=== PATIENT | female | born 1975 | race Two or more races ===

== ENCOUNTER 2023-06-16 17:48 | Inpatient (IN) | payer MEDICAID, OTHER ==
[~2023-06-16] VITALS: Ht 160 cm; Wt 71.4 kg
[2023-06-16 18:38] LABS: Basophils # (auto) 0.1 10 ^3/uL (0-0.2); Basophils % (auto) 0.6 % (0.0-2.0); Eosinophils # (auto) 0.2 10 ^3/uL (0-0.8); Eosinophils % (auto) 1.2 % (0.0-7.0); Hemoglobin 16.3 g/dL (12.2-16.2); Lymphocytes # (auto) 2.7 10 ^3/uL (0.4-5.4); Lymphocytes % (auto) 13.6 % (10.0-50.0); Mean Corpuscular Hemoglobin 30.1 pg (28.0-32.0); Mean Corpuscular Hgb Conc. 33.3 g/dL (32.0-36.0); Mean Corpuscular Volume 90.1 fL (80.0-100.0); Monocytes # (auto) 0.7 10 ^3/uL (0-1.3); Monocytes % (auto) 3.7 % (0.0-12.0); Neutrophils # (auto) 15.9 10 ^3/uL (1.6-8.6); Neutrophils % (auto) 80.9 % (37.0-80.0); Red Blood Cells 5.44 10^6/uL (4.0-5.20); Red Cell Distribution Width 14.2 % (11.8-14.3); White Blood Cell 19.7 10^3/uL (4.4-10.8)
[2023-06-16 18:50] LABS: Alanine Aminotransferase 19 U/L (7-40); Alkaline Phosphatase 100 U/L (46-116); Aspartate Aminotransferase 10 U/L (13-40); Calcium 9.9 mg/dL (8.7-10.4); Carbon Dioxide 22 mmol/L (20-30); Chloride 107 mmol/L (98-107); Glucose 100 mg/dL (74-106); Potassium 4.4 mmol/L (3.5-5.1)
[2023-06-16 18:51] LABS: Anion Gap 13 (5-15); BUN/Creatinine Ratio 12.8 (10.0-20.0); Bilirubin, Total 0.4 mg/dL (0.2-1.0); Blood Urea Nitrogen 11 mg/dL (9-23); Lipase 30 U/L (12-53); Sodium 142 mmol/L (136-145)
[2023-06-16] MEDS ORDERED: PIPERACILLIN-TAZOB 3.375GM 100 ML IV ONE (22:15)
[2023-06-16] MEDS ORDERED: metroNIDAZOLE 500MG/100ML 100 ML IV ONE (22:15)
[2023-06-16] MEDS ORDERED: LACTATED RINGER'S 1,900 ML IV ONE (22:15)
[2023-06-16 22:55] LABS: Urine WBC None Seen /hpf (0 - 5)
[2023-06-16 23:45] LABS: Urine Amorphous Crystal MANY /hpf (None Seen); Urine Bacteria NONE SEEN /hpf (None Seen); Urine Blood TRACE /uL (Negative); Urine Clarity CLOUDY (Clear); Urine Color Yellow (Yellow); Urine Mucus FEW (None Seen); Urine Protein, UAD TRACE (Negative); Urine Specific Gravity 1.031 (1.001-1.035); Urine Urobilinogen Normal (Negative)
[2023-06-17] MEDS ORDERED: fentaNYL CITRATE 100 MCG/2 ML VL IV ONE (00:30)
[2023-06-17] MEDS ORDERED: ONDANSETRON HCL 4 MG/2 ML VIAL IV ONE (00:30)
[2023-06-17] MEDS ORDERED: D5W/SOD CHL 0.45% 1,000 ML IV SCH (01:15)
[2023-06-17] MEDS ORDERED: ACETAMINOPHEN 325 MG TAB PO PRN (01:15)
[2023-06-17] MEDS ORDERED: DOCUSATE SOD 100 MG CAP PO PRN (01:15)
[2023-06-17] MEDS ORDERED: MORPHINE SULFATE INJ 2 MG/ml SYRG IV PRN ×2 (01:15→02:30)
[2023-06-17] MEDS ORDERED: ONDANSETRON HCL 4 MG/2 ML VIAL IV PRN (01:15)
[2023-06-17] MEDS ORDERED: HYDROcodone-ACET 5/325MG TAB PO PRN (01:15)
[2023-06-17] MEDS ORDERED: IOHEXOL 350 MG/ML 100ML IJ ONE (02:00)
[2023-06-17] MEDS ORDERED: SODIUM CHLORIDE 0.9% 1,900 ML IV ONE (02:15)
[2023-06-17] MEDS ORDERED: NITROGLYCERIN 0.4 MG SL TAB SL PRN (02:30)
[2023-06-17] MEDS: cefTRIAXone 1GM/50ML D5W 50 ML IV SCH ×2 (02:53→22:42)
[2023-06-17 06:30] LABS: Basophils # (auto) 0.2 10 ^3/uL (0-0.2); Basophils % (auto) 1.6 % (0.0-2.0); Eosinophils # (auto) 0.6 10 ^3/uL (0-0.8); Hematocrit 42.6 % (36.0-46.0); Hemoglobin 14.2 g/dL (12.2-16.2); Lymphocytes # (auto) 3.9 10 ^3/uL (0.4-5.4); Lymphocytes % (auto) 28.2 % (10.0-50.0); Mean Corpuscular Hgb Conc. 33.2 g/dL (32.0-36.0); Mean Corpuscular Volume 90.4 fL (80.0-100.0); Monocytes # (auto) 1.1 10 ^3/uL (0-1.3); Monocytes % (auto) 7.9 % (0.0-12.0); Neutrophils # (auto) 8.1 10 ^3/uL (1.6-8.6); Neutrophils % (auto) 58.3 % (37.0-80.0); Nucleated Red Blood Cells % 0.1 %; Red Blood Cells 4.72 10^6/uL (4.0-5.20); Red Cell Distribution Width 13.9 % (11.8-14.3); White Blood Cell 13.9 10^3/uL (4.4-10.8)
[2023-06-17 06:42] LABS: Alanine Aminotransferase 13 U/L (7-40); Albumin 3.9 g/dL (3.2-4.8); Alkaline Phosphatase 84 U/L (46-116); Anion Gap 8 (5-15); Aspartate Aminotransferase 8 U/L (13-40); BUN/Creatinine Ratio 8.4 (10.0-20.0); Bilirubin, Total 0.5 mg/dL (0.2-1.0); Blood Urea Nitrogen 8 mg/dL (9-23); Calcium 7.6 mg/dL (8.7-10.4); Carbon Dioxide 24 mmol/L (20-30); Chloride 108 mmol/L (98-107); Glucose 85 mg/dL (74-106); Potassium 3.8 mmol/L (3.5-5.1); Sodium 140 mmol/L (136-145)
[2023-06-17 06:43] LABS: Total Protein 6.3 g/dL (5.7-8.2)
[2023-06-17] MEDS: metroNIDAZOLE 500MG/100ML 100 ML IV SCH ×4 (14:13→23:32)
[2023-06-17] MEDS: D5W/SOD CHL 0.45% 1,000 ML IV SCH ×2 (14:33→21:15)
[2023-06-17 15:00] VITALS: PULSE 69; RESP 16; O2SAT 95
[2023-06-17] MEDS ORDERED: GASTROGRAFIN 120 ML SOL ONE (15:33)
[2023-06-17] MEDS: FOLIC ACID 1 MG, MULTIPLE VITAMIN 10 ML, MAGNESIUM SULF SDV 50% 8 MEQ, THIAMINE INJ 100... INJ SCH ×5 (18:14)
[2023-06-17 19:50] VITALS: PULSE 68; RESP 16; O2SAT 98
[2023-06-18] VITALS (8 sets, daily range): BP systolic 119–145; BP diastolic 51–84; PULSE 60–78; RESP 17–20; TEMP 97.9–98.4; O2SAT 95–99
[2023-06-18] MEDS: D5W/SOD CHL 0.45% 1,000 ML IV SCH ×3 (05:00→23:02)
[2023-06-18] MEDS: metroNIDAZOLE 500MG/100ML 100 ML IV SCH ×2 (05:26→20:33)
[2023-06-18 06:00] LABS: Basophils # (auto) 0.1 10 ^3/uL (0-0.2); Eosinophils # (auto) 0.5 10 ^3/uL (0-0.8); Eosinophils % (auto) 4.6 % (0.0-7.0); Hemoglobin 13.3 g/dL (12.2-16.2); Lymphocytes % (auto) 38.1 % (10.0-50.0); Mean Corpuscular Hemoglobin 30.3 pg (28.0-32.0); Mean Corpuscular Hgb Conc. 33.3 g/dL (32.0-36.0); Mean Corpuscular Volume 91.2 fL (80.0-100.0); Monocytes # (auto) 0.6 10 ^3/uL (0-1.3); Monocytes % (auto) 5.8 % (0.0-12.0); Neutrophils # (auto) 5.3 10 ^3/uL (1.6-8.6); Neutrophils % (auto) 50.5 % (37.0-80.0); Nucleated Red Blood Cells % 0.3 %; Red Blood Cells 4.39 10^6/uL (4.0-5.20); Red Cell Distribution Width 13.9 % (11.8-14.3); White Blood Cell 10.4 10^3/uL (4.4-10.8)
[2023-06-18 06:36] LABS: Alanine Aminotransferase 11 U/L (7-40); Albumin 3.7 g/dL (3.2-4.8); Alkaline Phosphatase 73 U/L (46-116); Anion Gap 8 (5-15); Aspartate Aminotransferase 9 U/L (13-40); Blood Urea Nitrogen 8 mg/dL (9-23); Calcium 8.4 mg/dL (8.7-10.4); Carbon Dioxide 22 mmol/L (20-30); Chloride 111 mmol/L (98-107); Glucose 82 mg/dL (74-106); Potassium 3.6 mmol/L (3.5-5.1); Sodium 141 mmol/L (136-145)
[2023-06-18 06:37] LABS: Bilirubin, Total 0.4 mg/dL (0.2-1.0); Total Protein 6.1 g/dL (5.7-8.2)
[2023-06-18] MEDS: FOLIC ACID 1 MG, MULTIPLE VITAMIN 10 ML, MAGNESIUM SULF SDV 50% 8 MEQ, THIAMINE INJ 100... INJ SCH ×5 (12:19)
[2023-06-18] MEDS: cefTRIAXone 1GM/50ML D5W 50 ML IV SCH (22:40)
[2023-06-19] MEDS: metroNIDAZOLE 500MG/100ML 100 ML IV SCH ×2 (04:18→12:15)
[2023-06-19 05:00] VITALS: BP 135/84; PULSE 59; RESP 19; TEMP 98.3; O2SAT 99
[2023-06-19] MEDS: D5W/SOD CHL 0.45% 1,000 ML IV SCH ×2 (06:46→13:15)
[2023-06-19 08:00] VITALS: PULSE 53
[2023-06-19 09:00] VITALS: BP 140/83; PULSE 70; RESP 20; TEMP 97.7; O2SAT 93
[2023-06-19] MEDS: FOLIC ACID 1 MG, MULTIPLE VITAMIN 10 ML, MAGNESIUM SULF SDV 50% 8 MEQ, THIAMINE INJ 100... INJ SCH ×5 (12:00)
[2023-06-19] MEDS ORDERED: CIP500T PO (13:01)
[2023-06-19 13:04] VITALS: BP 148/79; PULSE 69; RESP 20; TEMP 98.1; O2SAT 98
[2023-06-19 15:36] VITALS: TEMP 36.7
== END 2023-06-19 16:28 | disposition home or self-care (01) | DRG 720 ==
LOC: EDBD 17:48 → ER 17:48 → TELE 06-17 02:29 → TELE-EAST 06-17 21:53
PROVIDERS: ADMIT Nurse Practitioner Family; ATTEND Nurse Practitioner Acute Care
DX: A41.9 Sepsis, unspecified organism (principal); K56.609 Unspecified intestinal obstruction, unspecified as to partial versus complete obstruction; N39.0 Urinary tract infection, site not specified; D72.829 Elevated white blood cell count, unspecified; K52.9 Noninfective gastroenteritis and colitis, unspecified; F10.20 Alcohol dependence, uncomplicated; Y90.9 Presence of alcohol in blood, level not specified; Z88.8 Allergy status to other drugs, medicaments and biological substances; Z91.040 Latex allergy status; Z79.899 Other long term (current) drug therapy; Z82.49 Family history of ischemic heart disease and other diseases of the circulatory system
CPT/HCPCS: 36415; 74177; 74250; 76705; 80053; 81001; 83605; 83690; 85025; 87040; 93005; G0378; J0696; J2405; J2543; J3490

== ENCOUNTER 2025-07-28 18:26 | Inpatient (IN) | payer MEDICAID ==
[~2025-07-28] VITALS: Ht 170.2 cm; Wt 74.4 kg
[~2025-07-28 18:26] MED LIST: CIP500T PO
--- NOTE | 2025-07-28 18:59 | ED.PDOC ---
GI ASSESSMENT HPI Comments 49-year-old female who comes in with chief complaint of epigastric pain and dizziness. The patient states that the symptoms started this morning. The patient states that the pain is a 10/10. There has been some nausea and vomiting but otherwise there are no other symptoms. The patient has has a history of this in the past two years ago but is not sure what it was. She denies any dysuria. The patient went to a local urgent care and after being seen the patient was sent to the emergency department's for evaluation. Chief Complaint: Abdominal Pain Time Seen by MD: 18:29 Primary Care Provider: CARIE Reviewed Notes: Nurses Notes, Medications, Allergies (No allergies to medications but allergic to latex) Allergies: Coded Allergies: Latex (Verified Allergy, Unknown, 06/16/23) Home Meds Active Scripts Ciprofloxacin Hydrochloride (Ciprofloxacin HCl) 500 Mg Tab, 500 MG PO BID for 7 Days, #14 TAB Prov:YASEMIN SALINAS NP 06/19/23 Information Source: Patient Mode of Arrival: Ambulatory Timing: Days Duration: Since onset Prehospital treatment: None Quality: Aching, Burning Vomitus: Bilious Stool: Normal Severity: Moderate Recent: None Recent Hx of: None Pain Location: Epigastric Modifying Factors: Nothing Associated sign and symptoms: Nausea, Vomiting, Diarrhea, Abdominal Pain, Other (Dizziness) Past Medical History PAST MEDICAL HISTORY: Asthma Surgical History: Denies all surgeries SEAT JOINER CHAINSTITCH History: Denies all SEAT JOINER CHAINSTITCH Hx Family History Family History: Family hx of HTN Social History Smoker: Cigarettes Alcohol: Occasionally Drugs: Denies Drug Use Lives In: Home Constitutional: denies: chills, diaphoresis, fatigue, fever, malaise, sweats, weakness, others EENTM: denies: blurred vision, double vision, ear bleeding, ear discharge, ear drainage, ear pain, ear ringing, eye pain, eye redness, hearing loss, mouth pain, mouth swelling, nasal discharge, nose bleeding, nose congestion, nose pain, photophobia, tearing, throat pain, throat swelling, voice changes, others Respiratory: denies: cough, hemoptysis, orthopnea, SOB at rest, shortness of breath, SOB with excertion, stridor, wheezing, others Cardiovascular: denies: chest pain, dizzy spells, diaphoresis, Dyspnea on exertion, edema, irregular heart beat, left arm pain, lightheadedness, palpitations, PND, syncope, others Gastrointestinal: reports: abdominal pain, diarrhea, nausea, vomiting; denies: abdomen distended, blood streaked bowels, constipated, dysphagia, difficulty swallowing, hematemesis, melena, poor appetite, poor fluid intake, rectal bleeding, rectal pain, others Genitourinary: denies: abnormal vagina bleeding, burning, dyspareunia, dysuria, flank pain, frequency, hematuria, incontinence, pain, , vagina discharge, urgency, others Neurological: denies: dizziness, fainting, headache, left sided numbness, left sided weakness, numbness, paresthesia, pre-existing deficit, right sided numbness, right sided weakness, seizure, speech problems, tingling, tremors, weakness, others Musculoskeletal: denies: back pain, gout, joint pain, joint swelling, muscle pain, muscle stiffness, neck pain, others Integumetry: denies: bruises, change in color, change in hair/nails, dryness, laceration, lesions, lumps, rash, wounds, others Allergic/Immunocompromised: denies: Difficulty Healing, Frequent Infections, Hives, Itching, others Hematologic/Lymphatic: denies: anemia, blood clots, easy bleeding, easy bruising, swollen glands, others Endocrine: denies: excessive hunger, excessive sweating, excessive thirst, excessive urination, flushing, intolerance to cold, intolerance to heat, unexplained weight gain, unexplained weight loss, others Psychiatric: denies: anxiety, bipolar disorder, depression, hopeless, panic disorder, schizophrenia, sleepless, suicidal, others Physical Exam General Appearance: Moderate Distress HEENT: Normal ENT Inspection, Pharynx Normal, TMs Normal Neck: Full Range of Motion, Non-Tender, Normal, Normal Inspection Respiratory: Chest Non-Tender, Lungs Clear, No Accessory Muscle Use, No Respiratory Distress, Normal Breath Sounds Cardiovascular: No Edema, No JVD, No Murmur, No Gallop, Normal Peripheral Pulses, Regular Rate/Rhythm Breast Exam: Deferred Gastrointestinal: Epigastric, No Organomegaly, No Pulsatile Mass, Normal Bowel Sounds, Soft, Tenderness Genitalia: Deferred Pelvic: Deferred Rectal: Deferred Extremities: No calf tenderness, Normal capillary refill, Normal inspection, Normal range of motion, Non-tender, No pedal edema Musculoskeletal : Apperance: Normal Neurologic: Alert, painter ordnance II-XII nml as Tested, No Motor Deficits, Normal Affect, Normal Mood, No Sensory Deficits Cerebellar Function: Normal Reflexes: Normal Skin: Dry, Normal Color, Warm Lymphatic: No Adenopathy Was a procedure done? Was a procedure done?: No GI differential Dx Differential Diagnosis: Cholangitis, Cholecystitis, Gastritis/PUD, Gastroenteritis, Electrolyte Imbalance, Food Poisoning X-Ray, Labs, Meds, VS Vital Signs Date Time Temp Pulse Resp B/P (MAP) Pulse Ox O2 Delivery O2 Flow Rate FiO2 07/28/25 18:27 98.8 118 20 129/90 98 98.8 Lab Test 07/28/25 19:00 Range/Units White Blood Count 19.7 H 4.4-10.8 10^3/uL Red Blood Count 5.56 H 4.0-5.20 10^6/uL Hemoglobin 17.0 H 12.2-16.2 g/dL Hematocrit 49.9 H 36.0-46.0 % Mean Corpuscular Volume 89.7 80.0-100.0 fL Mean Corpuscular Hemoglobin 30.6 28.0-32.0 pg Mean Corpuscular Hemoglobin Concent 34.1 32.0-36.0 g/dL Red Cell Distribution Width 13.3 11.8-14.3 % Platelet Count 430 140-450 10^3/uL Mean Platelet Volume 8.5 6.9-10.8 fL Neutrophils (%) (Auto) 78.9 37.0-80.0 % Lymphocytes (%) (Auto) 15.6 10.0-50.0 % Monocytes (%) (Auto) 4.1 0.0-12.0 % Eosinophils (%) (Auto) 1.1 0.0-7.0 % Basophils (%) (Auto) 0.3 0.0-2.0 % Neutrophils # (Auto) 15.5 H 1.6-8.6 10 ^3/uL Lymphocytes # (Auto) 3.1 0.4-5.4 10 ^3/uL Monocytes # (Auto) 0.8 0-1.3 10 ^3/uL Eosinophils # (Auto) 0.2 0-0.8 10 ^3/uL Basophils # (Auto) 0.1 0-0.2 10 ^3/uL Nucleated Red Blood Cells 0.1 % Sodium Level 141 136-145 mmol/L Potassium Level 4.0 3.5-5.1 mmol/L Chloride Level 103 98-107 mmol/L Carbon Dioxide Level 26 20-31 mmol/L Anion Gap 12 5-15 Blood Urea Nitrogen 8 L 9-23 mg/dL Creatinine 1.05 H 0.550-1.02 mg/dL Glomerular Filtration Rate Calc 65 >90 mL/min BUN/Creatinine Ratio 7.6 L 10.0-20.0 Serum Glucose 132 H 74-106 mg/dL Calcium Level 10.3 8.7-10.4 mg/dL Total Bilirubin 0.5 0.2-1.0 mg/dL Aspartate Amino Transferase (AST) 21 13-40 U/L Alanine Aminotransferase (ALT) 26 7-40 U/L Alkaline Phosphatase 112 46-116 U/L Total Protein 8.4 H 5.7-8.2 g/dL Albumin 4.9 H 3.2-4.8 g/dL Lipase 27 12-53 U/L IV Hep-Lock was established The patient was given Protonix 40 mg IV push The patient was given morphine 4 mg IV push for the pain The patient was given Zofran 4 mg IV push for the nausea Ultrasound of the gallbladder shows: IMPRESSION: 5.1 cm area of increased echogenicity within the left hepatic lobe, favor focal fatty infiltration. Recommend nonemergent liver MRI with and without IV contrast for further evaluation. The patient's CBC shows an elevated white blood cell count of 19.7 The chemistry panel is within normal limits except for creatinine of 1.05 The liver enzymes are elevated At this time, we are admitting the patient to the hospitalist The diagnosis is intractable abdominal pain Images Reviewed?: Images reviewed and evaluated by me Time of 1ST Reevaluation: 18:58 Reevaluation 1ST: Unchanged Patient Education/Counseling: Diagnosis, Treatment, Prognosis Family Education/Counseling: Diagnosis, Treatment, Prognosis SEPSIS Sepsis Screen Date sepsis recognized/suspect: Jul 28, 2025 Time Sepsis recognized/suspect: 1828 Recent Procedure: No On Antibiotic Therapy: No Respiratory Rate >20: No Heart Rate >90: Yes (HR-118) Temp<36 C (96.8 F) or >38.3 C: No SBP <90 or MAP <65 mmHG: No New Acute Mental Status Change: No Is the patient on CPAP, BIPAP,: No Physician Orders Urinalysis (07/28/25 18:51) Heplock Iv (07/28/25 18:51) Gallbladder (07/28/25 18:51) Vital Signs Date Time Temp Pulse Resp B/P (MAP) Pulse Ox O2 Delivery O2 Flow Rate FiO2 07/28/25 18:27 98.8 118 20 129/90 98 98.8 Laboratory Tests Test 07/28/25 19:00 White Blood Count 19.7 10^3/uL (4.4-10.8) H Departure 1 Departure Time of Disposition: 20:24 Impression: Primary Impression: Intractable abdominal pain Disposition: ADMITTED INPATIENT Admit to: Med Surg Condition: Fair Critical Care Note Critical Care Time?: No Stability Stability form required: Yes Unstable for transfer: ED Physician Assesment (Clinical assesment) Heart Score Heart Score: Heart Score Response (Comments) Value History N/A 0 EKG N/A 0 Age N/A 0 Risk Factors N/A 0 Troponin N/A 0 Total 0 GAMAL MCINTYRE MD Jul 28, 2025 18:59
[2025-07-28 19:16] LABS: Hematocrit 49.9 % (36.0-46.0); Hemoglobin 17.0 g/dL (12.2-16.2); Mean Corpuscular Hemoglobin 30.6 pg (28.0-32.0); Mean Corpuscular Volume 89.7 fL (80.0-100.0); Nucleated Red Blood Cells % 0.1 %
[2025-07-28 19:43] LABS: Alanine Aminotransferase 26 U/L (7-40); Alkaline Phosphatase 112 U/L (46-116); Anion Gap 12 (5-15); BUN/Creatinine Ratio 7.6 (10.0-20.0); Bilirubin, Total 0.5 mg/dL (0.2-1.0); Calcium 10.3 mg/dL (8.7-10.4); Carbon Dioxide 26 mmol/L (20-31); Chloride 103 mmol/L (98-107); Lipase 27 U/L (12-53); Potassium 4.0 mmol/L (3.5-5.1); Sodium 141 mmol/L (136-145)
[2025-07-28 19:50] LABS: Albumin 4.9 g/dL (3.2-4.8); Blood Urea Nitrogen 8 mg/dL (9-23); Glucose 132 mg/dL (74-106); Total Protein 8.4 g/dL (5.7-8.2)
--- NOTE | 2025-07-28 20:18 | DVH ---
CLINICAL HISTORY: pain TECHNIQUE: Transabdominal sonogram was performed of the right upper quadrant. COMPARISON: US ABDOMEN LIMITED on DOS: 06/18/23 FINDINGS: The liver is heterogeneous in echogenicity. There is a 5.1 cm area of increased focal echogenicity within the left hepatic lobe. The liver measures 17.3 cm. The gallbladder is normal with no evidence for stones or wall thickening. The common bile duct is normal in caliber, measuring 3 mm. The partially visualized pancreas is grossly unremarkable. The right kidney is normal in echogenicity and measures 9.4 cm in length. There is no evidence for hydronephrosis or calculi. IMPRESSION: 5.1 cm area of increased echogenicity within the left hepatic lobe, favor focal fatty infiltration. Recommend nonemergent liver MRI with and without IV contrast for further evaluation.
--- NOTE | 2025-07-28 22:19 | DVHHPRES ---
History of Present Illness Resident Creating Document: BERTHA STARK RESIDENT History of Present Illness Ms ZEESHAN GILLIAM, a 49-year-old menopausal female with no significant past medical history presented to the ER with the complaints of severe upper abdominal pain, non bloody watery diarrhea, nausea and vomiting since morning. She denies any recent travel history or sick contacts. She reports the abdominal pain 10/10, no aggravating or relieving factors, constant, nonradiating. The vomiting was also not mixed with blood. With all the symptoms patient went to urgent care. The EKG during that visit revealed premature ventricular contractions and possible septal infarct. However, repeat EKG at [place] [facility] revealed no ischemic changes, incomplete RBBB could be normal variant. Past medical history: Nothing significant Past surgical history: No surgery in the past Menstrual history: Patient is on menopause. Allergies: Latex Alcohol: Occasionally, last drink was yesterday, 1 beer Family history: nothing significant PCP: Patient has a PCP Dr. Lizbet Philippe, however they are looking for a new PCP around the area. Full code Review of Systems Allergies: Coded Allergies: Latex (Verified Allergy, Unknown, 06/16/23) Exam Vital Signs Vital Signs Date Time Temp Pulse Resp B/P (MAP) Pulse Ox O2 Delivery O2 Flow Rate FiO2 07/28/25 21:47 98.6 109 18 127/88 (101) 97 98.6 Exam Pt is lying on bed General Appearance: Alert, Oriented X3, Cooperative, Mild distress HEENT: Atraumatic, Mucous membranes moist/pink Respiratory: Clear to auscultation, Normal air movement, No added sounds Cardiovascular: Regular rate, Normal S1, Normal S2, No murmurs Abdominal/ : Active bowel sounds, Soft, no distention, no tenderness Extremities: No edema, Normal pulses, No tenderness/swelling Skin: No Significant rash, except past surgical scars Neuro: Normal speech, sensorimotor deficits none Psych/Mental Status: Mental status NL, Mood NL Nurse was there as janitor helper during examination Labs/Xrays Labs Test 07/28/25 19:00 Range/Units White Blood Count 19.7 H 4.4-10.8 10^3/uL Red Blood Count 5.56 H 4.0-5.20 10^6/uL Hemoglobin 17.0 H 12.2-16.2 g/dL Hematocrit 49.9 H 36.0-46.0 % Mean Corpuscular Volume 89.7 80.0-100.0 fL Mean Corpuscular Hemoglobin 30.6 28.0-32.0 pg Mean Corpuscular Hemoglobin Concent 34.1 32.0-36.0 g/dL Red Cell Distribution Width 13.3 11.8-14.3 % Platelet Count 430 140-450 10^3/uL Mean Platelet Volume 8.5 6.9-10.8 fL Neutrophils (%) (Auto) 78.9 37.0-80.0 % Lymphocytes (%) (Auto) 15.6 10.0-50.0 % Monocytes (%) (Auto) 4.1 0.0-12.0 % Eosinophils (%) (Auto) 1.1 0.0-7.0 % Basophils (%) (Auto) 0.3 0.0-2.0 % Neutrophils # (Auto) 15.5 H 1.6-8.6 10 ^3/uL Lymphocytes # (Auto) 3.1 0.4-5.4 10 ^3/uL Monocytes # (Auto) 0.8 0-1.3 10 ^3/uL Eosinophils # (Auto) 0.2 0-0.8 10 ^3/uL Basophils # (Auto) 0.1 0-0.2 10 ^3/uL Nucleated Red Blood Cells 0.1 % Sodium Level 141 136-145 mmol/L Potassium Level 4.0 3.5-5.1 mmol/L Chloride Level 103 98-107 mmol/L Carbon Dioxide Level 26 20-31 mmol/L Anion Gap 12 5-15 Blood Urea Nitrogen 8 L 9-23 mg/dL Creatinine 1.05 H 0.550-1.02 mg/dL Glomerular Filtration Rate Calc 65 >90 mL/min BUN/Creatinine Ratio 7.6 L 10.0-20.0 Serum Glucose 132 H 74-106 mg/dL Calcium Level 10.3 8.7-10.4 mg/dL Total Bilirubin 0.5 0.2-1.0 mg/dL Aspartate Amino Transferase (AST) 21 13-40 U/L Alanine Aminotransferase (ALT) 26 7-40 U/L Alkaline Phosphatase 112 46-116 U/L Total Protein 8.4 H 5.7-8.2 g/dL Albumin 4.9 H 3.2-4.8 g/dL Lipase 27 12-53 U/L SEPSIS Sepsis Screen Date sepsis recognized/suspect: Jul 28, 2025 Time Sepsis recognized/suspect: 1828 Recent Procedure: No On Antibiotic Therapy: No Respiratory Rate >20: No Heart Rate >90: Yes (HR-118) Temp<36 C (96.8 F) or >38.3 C: No SBP <90 or MAP <65 mmHG: No New Acute Mental Status Change: No Is the patient on CPAP, BIPAP,: No Physician Orders Urinalysis (07/28/25 18:51) Heplock Iv (07/28/25 18:51) Gallbladder (07/28/25 18:51) Admit (07/28/25 22:15) Stat Ekg For Chest Pain (07/28/25 22:15) Notify Md Of Changes From Base (07/28/25 22:15) Byproduct Engineer For 24 Hours (07/28/25 22:15) Emergency Dysrhythmia Protocol (07/28/25 22:15) Rhythm Strips Once Every Shift (07/28/25 22:15) Vital Signs Date Time Temp Pulse Resp B/P (MAP) Pulse Ox O2 Delivery O2 Flow Rate FiO2 07/28/25 21:47 98.6 109 18 127/88 (101) 97 98.6 07/28/25 18:27 98.8 118 20 129/90 98 98.8 Laboratory Tests Test 07/28/25 19:00 White Blood Count 19.7 10^3/uL (4.4-10.8) H Assessment/Plan Assessment/Plan Acute gastroenteritis -NPO -IV fluid -IV ceftriaxone -IV metronidazole -stool WBC, stool bacterial culture and C diff sent Possible ileus or enteritis CT abdomen pelvis: Moderately distended fluid and gas-filled segments of small bowel and colon, no significant dilatation, maybe a ileus or enteritis Consider NG low intermittent suction and surgical consult if necessary Fatty liver Consult regarding healthy lifestyle Leiomyomatous uterus Outpatient follow up with care process manager GI prophylaxis: Pantoprazole DVT prophylaxis: SCDs Diet: NPO, switch to clear liquid if patient tolerates diet and no nausea Goals of care discussed with the patient for more than 27 minutes: Full code status Case discussed with Dr. Coto , patient and RN Plan discussed with: Patient, Spouse, Other (RN) My Orders Orders - BERTHA STARK RESIDENT Procedure Category Date Status Time Admit ADMIT 12/3/25 Transmitted 22:15 Stat Ekg For Chest [facility] 07/28/25 In Process Pain 22:15 Notify Md Of Changes [facility] 07/28/25 In Process From Base 22:15 Byproduct Engineer For [facility] 07/28/25 In Process 24 Hours 22:15 Emergency Dysrhythmia [facility] 07/28/25 In Process Protocol 22:15 Rhythm Strips Once [facility] 07/28/25 In Process Every Shift 22:15 Visit Coding STANDARD RES Billing Provider: LUBA COTO MD Date of Service if different f: Jul 29, 2025 Common Visit Codes: 12485-HSRQTAR INP/OBS CARE (HIGH) Secondary Visit Codes: [id number] CARE PLAN 30 MINUTES BERTHA STARK RESIDENT Jul 28, 2025 22:19 ANASTACIO GALE RESIDENT Jul 29, 2025 03:46
[2025-07-28] MEDS ORDERED: ONDANSETRON HCL 4 MG/2 ML VIAL IV PRN (22:30)
[2025-07-28] MEDS: SODIUM CHLORIDE 0.9% 1,000 ML IV ONE (22:30)
[2025-07-28] MEDS: PANTOPRAZOLE 40 MG/10 ML VIAL INJ IV ONE (23:30)
[2025-07-28] MEDS: SODIUM CHLORIDE 0.9% 500 ML IVB ONE (23:31)
[2025-07-28] MEDS: ONDANSETRON HCL 4 MG/2 ML VIAL IV ONE ×2 (23:55→23:56)
[2025-07-28] MEDS: MORPHINE SULFATE 4 MG/ML SYR/VIAL IV ONE (23:56)
[2025-07-29] VITALS (7 sets, daily range): BP systolic 114–147; BP diastolic 78–89; PULSE 75–98; RESP 17–20; TEMP 97.1–98.2; O2SAT 96–100
[2025-07-29 00:08] LABS: Barbiturate Scree,Urine Neg (NEGATIVE)
[2025-07-29 00:11] LABS: Urine Protein, UAD 1+ (Negative)
[2025-07-29 00:12] LABS: Amphetamine Screen, Urine Neg (NEGATIVE); Benzodiazephine Screen, Urine Neg (NEGATIVE); Cannabinoid Screen, Urine Neg (NEGATIVE); Cocaine Screen, Urine Neg (NEGATIVE); Opiate Scree,Urine Neg (NEGATIVE); Phencyclidine Screen, Urine Neg (NEGATIVE)
--- NOTE | 2025-07-29 03:27 | DVH ---
Exam: CT CT AB PEL WO CON-NO ORAL OR IV History: abdominal pain Comparison Study: US ABDOMEN LIMITED on DOS: 06/18/23, CT CT AB PEL WITH IV CON ONLY on DOS: 06/16/23 Technique: Multidetector spiral CT of the abdomen was performed from lung bases to pubic symphysis. Imaging was performed without IV contrast. Axial, coronal and sagittal multiplanar reformats were obtained from the axial data set by the technologist. Radiation Dose : 1. Abdomen/Pelvis: CTDIvol 5.87 mGy, DLP 370.25 mGy*cm. Findings: Evaluation of solid organs is limited due to lack of intravenous contrast use. Lung Bases: No acute or significant lung base finding. Normal heart size. No pleural or pericardial effusion. Liver: The liver is normal in size. No focal lesions. Gallbladder and Biliary Tree: Unremarkable Spleen: Unremarkable Pancreas: The pancreas is grossly normal in appearance. Adrenal Glands: Unremarkable Kidneys: Kidneys are grossly normal without calculi or hydronephrosis. Bladder: Grossly unremarkable for degree of distention. Bowel: The stomach is grossly normal in appearance. Moderately distended fluid and gas-filled segments of predominantly small bowel but also some segments of colon exhibiting air-fluid levels without an identifiable obstructive etiology. Small bowel and colon are otherwise normal in caliber and distribution. The appendix is not visualized; however, no secondary findings of acute appendicitis identified. Ascites: Absent Lymphadenopathy: No mesenteric, retroperitoneal or periportal lymphadenopathy. Abdominal Wall and Mesentery: Unremarkable. Vasculature: The visualized abdominal aorta is normal in size and caliber. Evaluation of abdominal and pelvic vessels is limited due to lack of intravenous contrast. Pelvic Organs: Partially calcified mass arising from the anterior aspect of the uterus, measuring 6.8 x 5.2 cm, consistent a uterine fibroid. Musculoskeletal: No aggressive focal bony lesions, acute fractures or dislocation. IMPRESSION: 1. Moderately distended fluid and gas-filled segments of predominantly small bowel but also some segments of colon exhibiting air-fluid levels without significant dilatation of the small bowel or colon. Findings may represent ileus or enteritis. 2. Leiomyomatous uterus. Radiation optimization: All CT scans at this facility use at least one of these dose optimization techniques: automated exposure control mA and/or kV adjustment per patient size (includes targeted exams where dose is matched to clinical indication) or iterative reconstruction.
[2025-07-29] MEDS: ACETAMINOPHEN 500 MG TAB or CAP PO PRN (03:44)
[2025-07-29] MEDS: SODIUM CHLORIDE 0.9% 1,000 ML IV SCH (03:50)
--- NOTE | 2025-07-29 06:11 | ECG ---
[facility] Test Date: 2025-07-29 Test Time: 06:02:03 Pat Name: ZEESHAN GILLIAM Department: ED Room: [facility]24[facility] Gender: F Nurse Prn: CYNDIE : 1975 Requested By: GAMAL MCINTYRE Order Number: [id number] Reading MD: Javad Carrion Measurements Intervals [place] Rate: 96 P: 42 [place]: 145 QRS: 6 QRSD: 92 T: 46 QT: 358 QTc: 453 Interpretive Statements Sinus rhythm RSR' in V1 or V2, right VCD or RVH Electronically Signed On 07-29-2025 17:07:28 PST by Javad Carrion Please click the below link to view image of tracing.
--- NOTE | 2025-07-29 07:24 | DVH ---
CLINICAL INFORMATION: Rule out pneumonia. TECHNIQUE: Single AP portable chest radiograph was obtained. COMPARISON: None FINDINGS: Lungs: Clear. Cardiac: Heart size is within normal limits. Pulmonary vasculature: Unremarkable. Mediastinum/galileo: Unremarkable. Bones: No acute osseous abnormality identified. Other: No other significant findings. IMPRESSION: No evidence of acute disease in the chest.
--- NOTE | 2025-07-29 15:16 | DVHPN2 ---
Subjective seen better with some nausea Reviewed: H&P Changes from previous H/P or p: No Changes Objective Vitals Vital Signs Date Time Temp Pulse Resp B/P (MAP) Pulse Ox O2 Delivery O2 Flow Rate FiO2 07/29/25 10:57 Room Air* 0 21 07/29/25 09:40 99.0 83 14 14/85 (62) 98 99.0 Intake/Output Intake and Output 07/29/25 07:00 Intake Total 1100 ml Balance 1100 ml Intake IV Total 1100 ml General Appearance: Alert, Oriented X3 HEENT: Atraumatic Cardiovascular: Regular rate, Normal S1, Normal S2 Abdomen: Normal bowel sounds Medications Current Medications Medications Dose Ordered Sig/Jose Route Start Time Stop Time Status Last Admin Dose Admin Ceftriaxone Sodium 50 ml @ 100 mls/hr DAILY@09 IV 07/29/25 09:00 07/29/25 08:42 100 MLS/HR Metronidazole 100 ml @ 100 mls/hr Q8HR IV 07/29/25 06:00 07/29/25 13:32 100 MLS/HR Ondansetron HCl 4 mg Q6HPRN PRN IV 07/28/25 22:30 Acetaminophen 500 mg Q8HP PRN PO 07/28/25 22:30 07/29/25 03:44 500 MG Sodium Chloride 1,000 ml @ 75 mls/hr [id number] IV 07/29/25 03:45 07/29/25 11:23 75 MLS/HR Laboratory Results Laboratory Tests 07/28/25 19:00 Chemistry Test 07/28/25 19:00 Albumin 4.9 g/dL (3.2-4.8) H Calcium Level 10.3 mg/dL (8.7-10.4) Total Protein 8.4 g/dL (5.7-8.2) H Lipid panel Test 07/28/25 19:00 Lipase 27 U/L (12-53) LFT Test 07/28/25 19:00 Alanine Aminotransferase (ALT) 26 U/L (7-40) Alkaline Phosphatase 112 U/L (46-116) Aspartate Amino Transferase (AST) 21 U/L (13-40) Total Bilirubin 0.5 mg/dL (0.2-1.0) HgA1c, TSH Test 07/28/25 19:00 Hemoglobin A1c 5.6 % A1C (<5.7) Thyroid Stimulating Hormone (TSH) 0.74 uIU/mL (0.55-4.78) Urinalysis Test 07/28/25 23:30 Urine Color Yellow (Yellow) Urine Clarity Turbid (Clear) H Urine pH 7.0 (5.0-9.0) Urine Specific [place] 1.031 (1.001-1.035) Urine Protein 1+ (Negative) H Urine Ketones Trace (Negative) Urine Blood Negative /uL (Negative) Urine Nitrite Negative (Negative) Urine Bilirubin Negative (Negative) Urine Urobilinogen Normal mg/dL (Negative) Urine Leukocyte Esterase 2+ /uL (Negative) Urine RBC 12 /hpf (0 - 4) Urine Microscopic WBC 42 /HPF (0-5) H Urine Squamous Epithelial Cells Few /hpf (<5) Urine Bacteria None seen /hpf (None Seen) Urine Hyaline Casts Few /lpf (0 - 2) Urine Mucus Few (None Seen) Urine Glucose Normal mg/dL (Normal) Urine Test Negative (Negative) Assessment/Plan Assessment/Plan Acute gastroenteritis -NPO -IV fluid -IV ceftriaxone -IV metronidazole -stool WBC, stool bacterial culture and C diff sent Possible ileus or enteritis CT abdomen pelvis: Moderately distended fluid and gas-filled segments of small bowel and colon, no significant dilatation, maybe a ileus or enteritis Consider NG low intermittent suction and surgical consult if necessary Fatty liver Consult regarding healthy lifestyle Leiomyomatous uterus Outpatient follow up with manager mortgage GI prophylaxis: Pantoprazole DVT prophylaxis: SCDs Diet: NPO, switch to clear liquid if patient tolerates diet and no nausea 07/29 Advance diet to fulls Plan discussed with: Patient My Orders Orders - KENDAL ESCUDERO MD Procedure Category Date Status Time C-Diff: Collect Next LEON 07/29/25 In Process Specimen 11:52 Education - Smoking LEON 07/29/25 In Process Cessation 11:56 * Smoking Cessation CONS 07/29/25 Transmitted Consult 11:56 Full Liq Diet DIET 07/29/25 Transmitted Dinner Date of Service: Jul 29, 2025 Billing Provider: KENDAL ESCUDERO MD Common Visit Codes: [id number] INP/OBS CARE(HIGH) KENDAL ESCUDERO MD Jul 29, 2025 15:16
[2025-07-30 01:00] VITALS: BP 120/79; PULSE 80; RESP 16; TEMP 98.6; O2SAT 98
[2025-07-30 05:00] VITALS: BP 138/77; PULSE 76; RESP 16; TEMP 98.5; O2SAT 93
[2025-07-30 08:38] VITALS: BP 139/88; PULSE 78; RESP 16; TEMP 97.5; O2SAT 95
[2025-07-30 11:31] LABS: Hematocrit 43.3 % (36.0-46.0); Hemoglobin 14.6 g/dL (12.2-16.2); Mean Corpuscular Hemoglobin 30.6 pg (28.0-32.0); Mean Corpuscular Volume 91.1 fL (80.0-100.0); Nucleated Red Blood Cells % 0.1 %
[2025-07-30] MEDS ORDERED: PANT40TA2 PO (11:49)
[2025-07-30] MEDS ORDERED: ALBUAER3 IN (11:49)
--- NOTE | 2025-07-30 11:51 | DVHDS2 ---
Discharge Summary Date of Admission Jul 28, 2025 at 22:15 Date of Discharge: Jul 30, 2025 Labs/Diagnostic Data: Laboratory Results Test 07/30/25 11:09 07/29/25 08:00 07/28/25 23:30 07/28/25 19:00 White Blood Count 9.5 10^3/uL (4.4-10.8) Red Blood Count 4.76 10^6/uL (4.0-5.20) Hemoglobin 14.6 g/dL (12.2-16.2) Hematocrit 43.3 % (36.0-46.0) Mean Corpuscular Volume 91.1 fL (80.0-100.0) Mean Corpuscular Hemoglobin 30.6 pg (28.0-32.0) Mean Corpuscular Hemoglobin Concent 33.6 g/dL (32.0-36.0) Red Cell Distribution Width 13.1 % (11.8-14.3) Platelet Count 343 10^3/uL (140-450) Mean Platelet Volume 8.4 fL (6.9-10.8) Neutrophils (%) (Auto) 50.1 % (37.0-80.0) Lymphocytes (%) (Auto) 38.6 % (10.0-50.0) Monocytes (%) (Auto) 5.4 % (0.0-12.0) Eosinophils (%) (Auto) 5.1 % (0.0-7.0) Basophils (%) (Auto) 0.8 % (0.0-2.0) Neutrophils # (Auto) 4.8 10 ^3/uL (1.6-8.6) Lymphocytes # (Auto) 3.7 10 ^3/uL (0.4-5.4) Monocytes # (Auto) 0.5 10 ^3/uL (0-1.3) Eosinophils # (Auto) 0.5 10 ^3/uL (0-0.8) Basophils # (Auto) 0.1 10 ^3/uL (0-0.2) Nucleated Red Blood Cells 0.1 % Stool for White Cells Few Urine Color Yellow (Yellow) Urine Clarity Turbid (Clear) Urine pH 7.0 (5.0-9.0) Urine Specific [place] 1.031 (1.001-1.035) Urine Protein 1+ (Negative) Urine Ketones Trace (Negative) Urine Blood Negative /uL (Negative) Urine Nitrite Negative (Negative) Urine Bilirubin Negative (Negative) Urine Urobilinogen Normal mg/dL (Negative) Urine Leukocyte Esterase 2+ /uL (Negative) Urine RBC 12 /hpf (0 - 4) Urine Microscopic WBC 42 /HPF (0-5) Urine Squamous Epithelial Cells Few /hpf (<5) Urine Bacteria None seen /hpf (None Seen) Urine Hyaline Casts Few /lpf (0 - 2) Urine Mucus Few (None Seen) Urine Glucose Normal mg/dL (Normal) Urine Test Negative (Negative) Urine Opiates Screen Neg (NEGATIVE) Urine Fentanyl Screen Neg (NEGATIVE) Urine Barbiturates Screen Neg (NEGATIVE) Urine Phencyclidine Screen Neg (NEGATIVE) Urine Amphetamines Screen Neg (NEGATIVE) Urine Benzodiazepines Screen Neg (NEGATIVE) Urine Cocaine Screen Neg (NEGATIVE) Urine Cannabinoids Screen Neg (NEGATIVE) Sodium Level 141 mmol/L (136-145) Potassium Level 4.0 mmol/L (3.5-5.1) Chloride Level 103 mmol/L (98-107) Carbon Dioxide Level 26 mmol/L (20-31) Anion Gap 12 (5-15) Blood Urea Nitrogen 8 mg/dL (9-23) Creatinine 1.05 mg/dL (0.550-1.02) Glomerular Filtration Rate Calc 65 mL/min (>90) BUN/Creatinine Ratio 7.6 (10.0-20.0) Serum Glucose 132 mg/dL (74-106) Hemoglobin A1c 5.6 % A1C (<5.7) Calcium Level 10.3 mg/dL (8.7-10.4) Total Bilirubin 0.5 mg/dL (0.2-1.0) Aspartate Amino Transferase (AST) 21 U/L (13-40) Alanine Aminotransferase (ALT) 26 U/L (7-40) Alkaline Phosphatase 112 U/L (46-116) Total Protein 8.4 g/dL (5.7-8.2) Albumin 4.9 g/dL (3.2-4.8) Lipase 27 U/L (12-53) Vitamin B12 Level 939 pg/mL (211-911) Vitamin D 25-Hydroxy 33.9 ng/mL (30.0-100) Thyroid Stimulating Hormone (TSH) 0.74 uIU/mL (0.55-4.78) Other Laboratory Tests 07/30/25 11:09 07/28/25 19:00 Brief Hx & Hospital Course: Ms ZEESHAN GILLIAM, a 49-year-old menopausal female with no significant past medical history presented to the ER with the complaints of severe upper abdominal pain, non bloody watery diarrhea, nausea and vomiting since morning. She denies any recent travel history or sick contacts. She reports the abdominal pain 10/10, no aggravating or relieving factors, constant, nonradiating. The vomiting was also not mixed with blood. With all the symptoms patient went to urgent care. The EKG during that visit revealed premature ventricular contractions and possible septal infarct. However, repeat EKG at [facility] [place] revealed no ischemic changes, incomplete RBBB could be normal variant. During hospital stay CT showed gastroenteritis Able to eat a drink and pain resolved Condition at Discharge: Good Final Diagnosis/Problems List VIRAL GASTROENTERITIS Discharge Disposition: Home Discharge Instruct/Medications Diet: Regular Activity: No Restrictions, As Tolerated Follow Up/Referral: PCP in 7 days Medications: pantoprazole, albuterol Scheduled Albuterol Sulfate (Ventolin Mdi), 90 MCG IN TID Ciprofloxacin Hydrochloride (Ciprofloxacin HCl), 500 MG PO BID Pantoprazole Sodium Sesquihydr (Protonix), 40 MG PO DAILY Discharge Statement: "Patient was advised to return to the ER or call 911 if any headaches, dizziness, shortness of breath, chest pain, abdominal pain, bleeding, fevers, or worsening of medical condition. Patient was counseled about treatment plan, medications, possible side effects, patientverbalized understanding. All questions were answered to the best of my ability. This discharge took greater then 30 minutes in planning, reviewing documentation, counseling the patient, and discussing with other team members." ASSESSMENT ASSESSMENT Assessment VIRAL GASTROENTERITIS Date of Service: Jul 30, 2025 Billing Provider: KENDAL ESCUDERO MD Common Visit Codes: 27875-WPO/OBS DISCH DAY >30min KENDAL ESCUDERO MD Jul 30, 2025 11:51
[2025-07-30 12:03] VITALS: TEMP 36.4
== END 2025-07-30 12:25 | disposition home or self-care (01) | DRG 249 ==
LOC: ER 18:26 → OVERFLOW 22:15 → EAST 07-29 16:01
PROVIDERS: ADMIT Hospitalist; ATTEND Hospitalist
DX: A08.4 Viral intestinal infection, unspecified (principal); D25.9 Leiomyoma of uterus, unspecified; K76.0 Fatty (change of) liver, not elsewhere classified; J45.909 Unspecified asthma, uncomplicated; F17.210 Nicotine dependence, cigarettes, uncomplicated; I49.3 Ventricular premature depolarization; Z91.040 Latex allergy status; Z82.49 Family history of ischemic heart disease and other diseases of the circulatory system
CPT/HCPCS: 36415; 71045; 74176; 76705; 80053; 80307; 81001; 81025; 82306; 82607; 83036; 83690; 84443; 85025; 85048; 87040; 87045; 87086; 87427; 87493; 93005; 96365; G0378; J2470; J3490